=== PATIENT | male | born 1955 | race Caucasian/White ===

== ENCOUNTER 2018-02-25 08:21 | Emergency (ER) | payer OTHER, SELFPAY ==
[2018-02-25] VITALS (8 sets, daily range): BP systolic 130–177; BP diastolic 78–92; PULSE 58–70; RESP 11–16; TEMP 36.1; O2SAT 93–100; BMI 27.0
--- NOTE | 2018-02-25 08:42 | EKG12_ITS ---
Test Reason : CP Blood Pressure : / mmHG Vent. Rate : 066 BPM Atrial Rate : 066 BPM P-R Int : 226 ms QRS Dur : 078 ms QT Int : 394 ms P-R-T Axes : 060 019 066 degrees QTc Int : 413 ms Sinus rhythm with 1st degree A-V block Septal infarct , age undetermined Abnormal ECG Confirmed by VALERIA CARLISLE ([id number]), commissioning editor SYDNI BALL ([id number] on 03/02/2018 2:49:07 PM Referred By: RHIANNON Confirmed By:VALERIA CARLISLE
--- NOTE | 2018-02-25 08:43 | ED.VISSUMM ---
- ER Visit Summary Date of Service: 02/25/18 Chief Complaint: Epigastric pain History of Present Illness: The patient is a 62 M who states that around 730 after breakfast of Cheerios and grapefruit began to have a epigastric discomfort. States it felt like bad indigestion. He states he was nauseated nearly vomited. He also felt clammy and slightly short of breath. He states this is very out of character for him. The discomfort was nonradiating. He denies any significant medical problems and states he has a bicuspid valve is not sure of which valve. He sees Dr. Busby for that. He is a current non-smoker but states he did smoke in the past and quit 11/01/1980 at a rate of 2 packs per day for 10 years.. No history of diabetes hypertension high cholesterol. No PE risk factors. He runs a [employer] and has not noted any change in his exercise tolerance. He denies any problems eating certain types of food. No street drugs but does drink 6 pack of [employer] light per day. 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 Patient has a bicuspid aortic valve with moderate aortic valve stenosis. Section fraction around 60%. Grade 1 left ventricular diastolic dysfunction. 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 He is asked to monitor that. Physical Examination: Afebrile vital signs are stable Gen: Well-nourished well-developed Head: Normocephalic atraumatic Eyes: Perrl EOMI ENT: TMs clear no rhinorrhea moist mucous membranes Neck: Supple no lymphadenopathy no JVD nontender CVS: Regular rate rhythm no murmurs normal S1-S2 Respiratory: No distress clear to auscultation bilaterally chest nontender Abdomen: Soft nontender nondistended normal bowel sounds no masses Back: Nontender Extremity: Nontender no edema Skin: Normal color no rash Neuro: alert orientated ?3 CN II-XII intact normal strength sensation reflexes gait cerebellar Psych: Normal affect normal mood Test Results: EKG shows a sinus rhythm with a first-degree AV block at a rate of 66. Is able to obtain a old EKG by Dr. Busby from January 2016 which appears unchanged. CBC BMP and initial troponin were negative. Chest x-ray negative. Second troponin negative Emergency Department Course and Treatment: Patient got good relief with a GI cocktail. 2 sets of troponins were negative. JALEESA score is 0. The patient will be placed on Pepcid twice daily. He will follow-up with his primary care doctor to discuss stress test or further investigation. Impression: 1. GERD 2. Chest pain This note was generated with [employer] dictation software. It may contain incorrect words, spelling, and punctuation that were not noted in review of the chart prior to signing ED Disposition - Plan for ED Patient: Disposition: Home or Assisted Living Chief Complaint: Chest Pain Instructions: ED GERD Prescriptions: Famotidine [Pepcid] 20 mg PO BID #28 tab Referrals: Sam George DO [Primary Care Provider] - As soon as possible
--- NOTE | 2018-02-25 08:44 | RAD_ITS ---
STUDY: X-RAY CHEST REASON FOR EXAM: Male, 62 years old. Epigastric/chest pain. Short of breath. Nausea. Plan made. TECHNIQUE: Single portable frontal chest. COMPARISON: None. FINDINGS: The lungs are clear and expanded. There is no demonstrated pleural abnormality. Normal size heart. Normal mediastinum and katharina. Normal visualized pulmonary arteries. Normal visualized aortic arch and descending thoracic aorta. Normal visualized thoracic spine. Normal visualized ribs, clavicles, and shoulders. There is no demonstrated abnormality of the visualized soft tissue structures of the upper abdomen. RAD/Chest 1 View (Portable) IMPRESSION: Normal x-ray examination of the chest. Electronically Signed: Wilmer Carlson MD at 9:19 EDT , Service support ,
[2018-02-25 08:55] LABS: Absolute Lymphocyte Count 2.16 X10^3/ul (0.83-4.51); Basophil# 0.04 X10^3/uL; Basophil% 0.6 % (0-1); Eosinophil# 0.42 X10^3/uL; Eosinophils% 6.6 % (0-5); Hematocrit 41.4 % (40-54); Hemoglobin 13.5 g/dl (13.0-16.5); Lymphocyte # 2.16 X10^3/ul (4.0); Lymphocyte % 34.2 % (19-41); Mean Corp Hgb Conc 32.6 g/gl (32-36); Mean Corpuscular Hgb 31.6 pg (27.0-32.0); Mean Platelet Vol. 9.4 fl (6.2-12.0); Monocyte# 0.67 X10^3/uL; Monocyte% 10.6 % (0-10); Neutrophil # 3.02 X10^3/uL (2.7-7.7); Neutrophil % 47.8 % (47-70); Platelet Count 257 K/mm3 (150-450); RBC Distribution Width CV 12.9 % (11.6-14.6); Red Blood Count 4.27 M/mm3 (4.6-6.2); White Blood Count 6.3 K/mm3 (4.4-11.0)
[2018-02-25 09:00] LABS: POSITIVE COUNT NO; POSITIVE DIFFERENTIAL NO; POSITIVE MORPHOLOGY NO
[2018-02-25 09:07] LABS: Anion Gap 5 (5-15); BUN 15 mg/dL (7-18); Calcium,Total 8.7 mg/dL (8.5-10.1); Chloride 101 mmol/L (98-107); Creatinine, Serum 1.07 mg/dL (0.70-1.30); EST Glomerular Filtration Rate 75 mL/min (>60); Est Glom Filt Rate - Afr Amer 91 mL/min (>60); Estimated Creatinine Clearance 71.03 ml/min; Glucose 119 mg/dL (74-106); Sodium Level 136 mmol/L (136-145)
== END 2018-02-25 12:41 | disposition home or self-care (01) ==
PROVIDERS: Emergency Provider Emergency Medicine; Family Provider Student in an Organized Health Care Education/Training Program; PCP Student in an Organized Health Care Education/Training Program
DX: K21.9 Gastro-esophageal reflux disease without esophagitis (principal); R07.9 Chest pain, unspecified; I44.0 Atrioventricular block, first degree; Q23.1 Congenital insufficiency of aortic valve
CPT/HCPCS: 71045; 80048; 84484; 85025; 93005; 99285; A4216

== ENCOUNTER 2018-07-18 17:14 | Emergency (ER) | payer MEDICAID, SELFPAY ==
[2018-07-18 17:15] VITALS: BP 152/82; PULSE 73; RESP 16; TEMP 37.3; O2SAT 99; BMI 25.9
--- NOTE | 2018-07-18 19:01 | ED.DCSUM_ITS ---
- ER Visit Summary Date of Service: 07/18/18 Chief Complaint: right thumb lac History of Present Illness: The patient is a 62 M who presents for laceration to the right thumb. Patient was cutting corn husks and accidentally incised his right thumb. He is having mild pain to the right thumb. He is left- handed. Tetanus is up-to-date. No other injuries. Patient applied pressure to the injury. He is on a daily baby aspirin but no other blood thinners. No history of a bleeding disorder. Physical Examination: Patient is awake and alert, well-nourished well-developed in no distress. Examination of the right thumb shows a 1 cm partial-thickness laceration over the lateral radial portion of the thumb between the IP and MCP joints. No joint involvement. Hemorrhage is well controlled at this time. Patient has full extension and flexion of the IP joint. Sensation intact distally. Brisk capillary refill. Test Results: [] Emergency Department Course and Treatment: During examination of the thumb, there was a small superficial arterial bleed that began. It was easily controlled with pressure. Bloodless field was obtained with a finger tourniquet. Lidocaine 1% was locally infiltrated into the area of laceration. The area was cleansed and thoroughly irrigated. There was no bony involvement or tendon or ligamentous injury noted. No foreign bodies noted to be removed. The edges were approximated with 5-0 Ethilon sutures times 4 simple interrupted sutures. There was no further bleeding. Patient tolerated it well. He was placed in a thumb spica splint to keep motion of the thumb limited because the incision is at an area of high tension and patient uses his hands for work. Discharged home. Treatment Plan: [] Disposition: [] Impression: 1 cm right thumb laceration, sutured This note was generated with [employer] dictation software. It may contain incorrect words, spelling, and punctuation that were not noted in review of the chart prior to signing ED Disposition - Plan for ED Patient: Disposition: Home or Assisted Living Chief Complaint: Laceration Instructions: ED Laceration Hand Referrals: Sam George DO [Primary Care Provider] - 7 Days for suture removal Additional Instructions: Keep your cut clean and dry for the first 24 hours. After that he may remove the bandaging and wash gently with soap and water. Do not soak it. Keep it covered and clean. Wear the splint to help keep your thumb from bending to prevent reopening of the cut. If you have any concerns for infection, such as severe pain, swelling, red streaking up your arm, pus oozing from the wound, or any other concerns, return immediately to the emergency department for another evaluation. Have the cut reevaluated in 7-10 days for suture removal.
[2018-07-18 19:32] VITALS: PULSE 83; RESP 22; O2SAT 98
--- NOTE | 2018-07-18 19:34 | ED.RN ---
THIS NURSE REVIEWED D/C INSTRUCTIONS WITH PT AND . PT VERBALIZED UNDERSTANDING OF INSTRUCTIONS. PT DENIES FURTHER NEEDS OR QUESTIONS AT THIS TIME. PT AMBULATES FROM ROOM ON OWN WITHOUT ASSISTANCE FROM STAFF
== END 2018-07-18 19:35 | disposition home or self-care (01) ==
PROVIDERS: Emergency Provider Emergency Medicine; Family Provider Student in an Organized Health Care Education/Training Program; PCP Student in an Organized Health Care Education/Training Program
DX: S61.011A Laceration without foreign body of right thumb without damage to nail, initial encounter (principal); W45.8XXA Other foreign body or object entering through skin, initial encounter; W27.8XXA Contact with other nonpowered hand tool, initial encounter; Y93.9 Activity, unspecified; Y92.89 Other specified places as the place of occurrence of the external cause; Y99.9 Unspecified external cause status; I10 Essential (primary) hypertension
CPT/HCPCS: 12001; 99283

== ENCOUNTER → 2020-06-26 13:50 | Outpatient (CLI) | payer MEDICAID, SELFPAY ==
[2020-05-17 15:55] VITALS: BMI 25.1
--- NOTE | 2020-06-26 13:52 | ECHOD_ITS ---
Reason For Study: MURMUR Procedure This was a 2D Doppler, Color Flow transthoracic echocardiogram. The exam was of adequate technical quality. Exam performed in department. Left Ventricle Normal LV size. Sigmoid septum. Left ventricular systolic function is normal. The estimated ejection fraction is 65 %. Transmitral doppler flow suggestive of impaired relaxation of left ventricle. No regional wall motion abnormalities noted. Right Ventricle Normal RV size. Normal systolic function. Atria The left atrium is mildly enlarged. Normal right atrium. No doppler evidence for ASD. Mitral Valve There is no mitral annular calcification. Mild diffuse mitral valve thickening. Mild mitral valve prolapse, posterior leaflet. Mild (1+) mitral valve insufficiency. Tricuspid Valve Normal tricuspid valve. Trivial tricuspid valve insufficiency. Aortic Valve Based upon the 2D echocardiographic images obtained a bicuspid aortic valve with a fused and calcified raphae cannot be excluded. Moderate focal aortic valve calcification. Mild to moderate aortic stenosis. Mild (1+) aortic valve insufficiency. Pulmonic Valve The pulmonic valve is not well visualized. Great Vessels Normal sized aortic root. Pericardium/Pleural No pericardial effusion. MMode/2D Measurements & Calculations LVIDd: 5.1 cm IVSd: 1.2 cm LVOT diam: 2.5 cm LVIDs: 3.2 cm LVPWd: 1.2 cm LVOT area: 4.8 cm2 RVDd: 3.7 cm FS: 37.6 % Ao root diam: 3.5 cm LAV(MOD-bp): 81.8 ml LA A4 area: 22.0 cm2 LAV(MOD-bp) Indexed: 43.4 ml/m2 LAV(MOD-sp2): 70.2 ml LAV(MOD-sp4): 77.8 ml LA dimension(2D): 3.4 cm RA A4 area: 15.0 cm2 Time Measurements MV dec time: 0.21 sec Doppler Measurements & Calculations MV E max laureano: 81.8 cm/sec Lat Peak E' Laureano: 5.5 cm/sec Med Peak E' Laureano: 6.3 cm/sec MV A max laureano: 94.4 cm/sec E/E' lat: 14.9 E/E' med: 13.1 MV E/A: 0.87 Ao V2 max: 348.4 cm/sec LV V1 max: 122.0 cm/sec SV(LVOT): 142.9 ml Ao max P.6 mmHg LV V1 max P.0 mmHg Ao V2 mean: 260.4 cm/sec LV V1 mean P.2 mmHg Ao mean P.5 mmHg LV V1 mean: 84.8 cm/sec Ao V2 VTI: 81.7 cm LV V1 VTI: 29.9 cm MILA(I,D): 1.7 cm2 MILA(V,D): 1.7 cm2 PA V2 max: 92.5 cm/sec Interpretation Summary Left ventricular systolic function is normal. The estimated ejection fraction is 65 %. Sigmoid septum. The left atrium is mildly enlarged. Mild diffuse mitral valve thickening. Mild mitral valve prolapse, posterior leaflet Mild (1+) mitral valve insufficiency. Trivial tricuspid valve insufficiency. Based upon the 2D echocardiographic images obtained a bicuspid aortic valve with a fused and calcified raphae cannot be excluded. Moderate focal aortic valve calcification. Mild to moderate aortic stenosis. Mild (1+) aortic valve insufficiency. Transmitral doppler flow suggestive of impaired relaxation of left ventricle Ordering Physician: Carlos Douglass Referring Physician: Sam Juan Performed By: Erma Madden, PARVEZ, RVT
== END ==
PROVIDERS: PCP Student in an Organized Health Care Education/Training Program; Referring Provider Internal Medicine Cardiovascular Disease; Visit Provider Internal Medicine Cardiovascular Disease
DX: I34.1 Nonrheumatic mitral (valve) prolapse (principal); I34.0 Nonrheumatic mitral (valve) insufficiency; E78.2 Mixed hyperlipidemia; I10 Essential (primary) hypertension; Q23.1 Congenital insufficiency of aortic valve
CPT/HCPCS: 93306

== ENCOUNTER 2021-03-06 13:31 | Outpatient (RCR) | payer MEDICAID, SELFPAY ==
[2020-05-17 15:55] VITALS: BMI 25.1
== END 2021-04-10 23:59 ==
LOC: IMMUN 13:31
PROVIDERS: PCP Student in an Organized Health Care Education/Training Program; Visit Provider Family Medicine
DX: Z23 Encounter for immunization (principal)
CPT/HCPCS: 0001A; 91300

== ENCOUNTER → 2021-05-24 12:50 | Outpatient (CLI) | payer MEDICAID, SELFPAY ==
[2021-05-15 15:29] VITALS: BMI 24.4
--- NOTE | 2021-05-24 12:53 | ECHOD_ITS ---
Reason For Study: MURMUR Procedure This was a 2D Doppler, Color Flow transthoracic echocardiogram. The exam was of adequate technical quality. Exam performed in department. Left Ventricle Normal LV size. Left ventricular systolic function is normal. The estimated ejection fraction is 65 %. Transmitral doppler flow suggestive of impaired relaxation of left ventricle. No regional wall motion abnormalities noted. Right Ventricle Normal RV size. Normal systolic function. Atria The left atrium is mildly enlarged. Normal right atrium. No doppler evidence for ASD. Mitral Valve There is no mitral annular calcification. Mild diffuse mitral valve thickening. Mild mitral valve prolapse, posterior leaflet. Mild-Moderate (1-2+) mitral valve insufficiency. Tricuspid Valve Normal tricuspid valve. Mild tricuspid valve insufficiency. Right ventricular systolic pressure estimated to be 25 mmHg. Aortic Valve Based upon the 2D echocardiographic images obtained a bicuspid aortic valve with a fused, thickened, and calcified raphae cannot be excluded. Moderate aortic stenosis. Trivial aortic valve insufficiency. Pulmonic Valve The pulmonic valve is not well visualized. Mild (1+) pulmonic valve insufficiency. Great Vessels Borderline to mildly dilated aortic root. Pericardium/Pleural No pericardial effusion. MMode/2D Measurements & Calculations LVIDd: 5.1 cm IVSd: 1.0 cm LVOT diam: 2.2 cm LVIDs: 3.4 cm LVPWd: 0.95 cm LVOT area: 3.9 cm2 RVDd: 3.3 cm FS: 33.3 % Ao root diam: 3.9 cm LAV(MOD-bp): 61.3 ml LVAd ap4: 34.9 cm2 LAV(MOD-bp) Indexed: 33.0 ml/m2 LVLd ap4: 8.5 cm LAV(MOD-sp2): 59.1 ml EDV(MOD-sp4): 117.4 ml LAV(MOD-sp4): 58.2 ml EDV(sp4-el): 122.1 ml LVAs ap4: 17.0 cm2 LVLs ap4: 6.6 cm ESV(MOD-sp4): 37.2 ml ESV(sp4-el): 37.3 ml EF(MOD-sp4): 68.3 % EF(sp4-el): 69.5 % LVAd ap2: 31.3 cm2 SV(MOD-sp4): 80.2 ml SV(MOD-sp2): 63.6 ml LVLd ap2: 8.5 cm EDV(MOD-sp2): 95.5 ml EDV(sp2-el): 97.4 ml LVAs ap2: 15.6 cm2 LVLs ap2: 6.4 cm ESV(MOD-sp2): 32.0 ml ESV(sp2-el): 32.2 ml EF(MOD-sp2): 66.5 % SV(sp4-el): 84.9 ml LA dimension(2D): 3.4 cm LA A4 area: 19.9 cm2 RA A4 area: 14.0 cm2 Time Measurements MV dec time: 0.21 sec Doppler Measurements & Calculations MV E max laureano: 75.6 cm/sec Lat Peak E' Laureano: 6.7 cm/sec Med Peak E' Laureano: 6.4 cm/sec MV A max laureano: 91.2 cm/sec E/E' lat: 11.3 E/E' med: 11.9 MV E/A: 0.83 Ao V2 max: 392.6 cm/sec AI max laureano: 428.1 cm/sec LV V1 max: 121.4 cm/sec Ao max P.8 mmHg AI max P.3 mmHg LV V1 max P.9 mmHg Ao V2 mean: 294.2 cm/sec LV V1 mean P.3 mmHg Ao mean P.5 mmHg AI dec slope: 300.9 cm/sec2 LV V1 mean: 86.5 cm/sec Ao V2 VTI: 93.8 cm AI P1/2t: 416.6 msec LV V1 VTI: 29.7 cm MILA(I,D): 1.2 cm2 MILA(V,D): 1.2 cm2 SV(LVOT): 115.1 ml PA V2 max: 91.3 cm/sec PI end-d laureano: 116.7 cm/sec TR max laureano: 235.4 cm/sec TR max P.3 mmHg ECHO/Echo Complete Interpretation Summary Left ventricular systolic function is normal. The estimated ejection fraction is 65 %. The left atrium is mildly enlarged. Mild mitral valve prolapse, posterior leaflet Mild diffuse mitral valve thickening. Mild-Moderate (1-2+) mitral valve insufficiency. Mild tricuspid valve insufficiency. Based upon the 2D echocardiographic images obtained a bicuspid aortic valve wit h a fused, thickened, and calcified raphae cannot be excluded. Moderate aortic stenosis. Trivial aortic valve insufficiency. Mild (1+) pulmonic valve insufficiency. Borderline to mildly dilated aortic root. Right ventricular systolic pressure estimated to be 25 mmHg. Transmitral doppler flow suggestive of impaired relaxation of left ventricle Ordering Physician: Carlos Douglass Referring Physician: CAROLANN GORDON Performed By: Gisselle Monaco, RDCS, RVT
== END ==
PROVIDERS: PCP Student in an Organized Health Care Education/Training Program; Referring Provider Internal Medicine Cardiovascular Disease; Visit Provider Internal Medicine Cardiovascular Disease
DX: I35.2 Nonrheumatic aortic (valve) stenosis with insufficiency (principal)
CPT/HCPCS: 93306